=== PATIENT | female | born 1940 | race Two or more races ===

== ENCOUNTER 2018-03-11 19:05 | Emergency (ER) | payer MEDICARE, OTHER ==
[~2018-03-11] VITALS: Ht 162.6 cm; Wt 45.4 kg
[2018-03-11 19:47] VITALS: BP 184/109
[2018-03-11] MEDS ORDERED: ACETAMINOPHEN 325 MG TAB PO ONE (21:00)
[2018-03-11] MEDS ORDERED: ceFAZolin IM 1GM/2.5ML STERILE WATER IM ONE (22:30)
[2018-03-11] MEDS ORDERED: LIDOCAINE W/ EPINEPHRINE 1% 20ML VIAL SC ONE (22:30)
[2018-03-11] MEDS ORDERED: ceFAZolin 1GM/50ML 100 ML IV ONE ×2 (22:45→23:15)
[2018-03-11] MEDS ORDERED: LIDOCAINE W/ EPINEPHRINE 1 % INJ 30ML ONE (22:57)
[2018-03-11] MEDS ORDERED: SILVER SULFADIAZINE 1 % TOPICAL CREAM 50GM TOP ONE (23:00)
[2018-03-12] MEDS ORDERED: BACITRACIN TOP OINT 1 UD PKG TOP ONE (00:39)
[2018-03-12] MEDS ORDERED: BACITRACIN INJ 50000 UNIT VIAL TOP ONE (00:45)
[2018-03-12] MEDS ORDERED: NEOMYCIN-BACITRACIN-POLYM UNITDOSE PKG TOP OINT TOP ONE (00:45)
[2018-03-14] MEDS ORDERED: ALBU2TAB4 PO (03:33)
== END 2018-03-12 01:27 | disposition home or self-care (01) ==
LOC: EDBD 19:05 → ER 19:11
DX: S81.812A Laceration without foreign body, left lower leg, initial encounter (principal); F17.210 Nicotine dependence, cigarettes, uncomplicated; W19.XXXA Unspecified fall, initial encounter; Y93.89 Activity, other specified; Y99.8 Other external cause status; Y92.89 Other specified places as the place of occurrence of the external cause
CPT/HCPCS: 12036; 73590; 96365; 96372; 99284; J0690; J2001

== ENCOUNTER 2018-12-11 17:45 | Emergency (ER) | payer MEDICARE ==
[~2018-12-11] VITALS: Ht 142.2 cm; Wt 64.9 kg
[~2018-12-11 17:45] MED LIST: ALBU2TAB4 PO
[2018-12-11 17:51] VITALS: BP 168/112
[2018-12-11 19:15] LABS: Basophils # (auto) 0.1 uL; Basophils % (auto) 1.1 % (0.0-2.0); Eosinophils # (auto) 0.1 uL; Eosinophils % (auto) 1.1 % (0.0-7.0); Hematocrit 42.6 % (36.0-46.0); Hemoglobin 13.8 g/dL (12.2-16.2); Lymphocytes # (auto) 1.6 uL; Lymphocytes % (auto) 16.4 % (10.0-50.0); Mean Corpuscular Hemoglobin 29.4 pg (28.0-32.0); Mean Corpuscular Hgb Conc. 32.5 g/dL (32.0-36.0); Mean Corpuscular Volume 90.6 fL (80.0-100.0); Monocytes # (auto) 0.8 uL; Monocytes % (auto) 8.5 % (0.0-12.0); Neutrophils # (auto) 7.1 uL; Neutrophils % (auto) 72.9 % (37.0-80.0); Nucleated Red Blood Cells % 0.1 %; Platelet Count (auto) 195 10^3/uL (140-450); White Blood Cell 9.8 10^3/uL (4.4-10.8)
[2018-12-11 19:32] LABS: Chloride 106 mmol/L (98-107); Potassium 4.3 mmol/L (3.5-5.1); Sodium 144 mmol/L (136-145)
[2018-12-11 19:41] LABS: Alanine Aminotransferase 10 U/L (13-56); Albumin 3.4 g/dL (3.4-5.0); Alkaline Phosphatase 97 U/L (45-117); Anion Gap 8 (5-15); Aspartate Aminotransferase 20 U/L (15-37); BUN/Creatinine Ratio 18.9; Bilirubin, Total 0.9 mg/dL (0.2-1.0); Blood Urea Nitrogen 25 mg/dL (7-18); Calcium 8.8 mg/dL (8.5-10.1); Carbon Dioxide 30 mmol/L (21-32); GFR African American 50 mL/min; GFR Non-African American 41 mL/min; Glucose 97 mg/dL (74-106); Magnesium 2.4 mg/dL (1.6-2.6); Total Protein 7.6 g/dL (6.4-8.2)
== END 2018-12-11 19:15 | disposition left against medical advice (07) ==
LOC: EDBD 17:45 → ER 17:56
DX: R06.02 Shortness of breath (principal); Z53.21 Procedure and treatment not carried out due to patient leaving prior to being seen by health care provider
CPT/HCPCS: 36415; 80053; 83735; 84484; 85025; 93005